=== PATIENT | male | born 1950 | race Caucasian/White ===

== ENCOUNTER 2018-01-13 14:45 | Inpatient (IN) ==
--- NOTE | 2018-01-13 15:25 | Emergency Department Note ---
Disposition Clinical Impression: Nausea vomiting and diarrhea, Acute hyponatremia Disposition: Admitted As Inpatient Condition: Good Referrals: Stiven Le DO [Primary Care Provider] - Forms: ED Satisfaction Letter Time of Disposition: 16:36 Nausea/Vomiting/Diarrhea HPI - General Chief complaint: ED Nausea/Vomiting/Diarrhea Stated complaint: vomiting diarrhea Time Seen by Provider: 01/13/18 14:50 Source: patient Mode of arrival: ambulatory Limitations: no limitations Nursing Notes Reviewed: Yes Vital Signs Reviewed: Yes - History of Present Illness Pt Subjective Complaint: nausea, vomiting, diarrhea Onset (ago): Just DATABASE SUPPORT Description of emesis: food contents Description of Diarrhea: water Associated Abdominal Pain: Yes - Related Data Home Medications Medication Instructions Recorded Confirmed Acetaminophen/Butalbital/Caffe 1 each PO Q6HR PRN 12/22/15 12/22/15 [Fioricet] Aspirin [Adult Low Dose Aspirin EC] 81 mg PO DAILY 12/22/15 12/22/15 Bupropion HCl [Wellbutrin Xl] 300 mg PO DAILY 12/22/15 12/22/15 Carvedilol [Coreg] 6.25 mg PO BIDWM 12/22/15 12/22/15 Clopidogrel [Plavix] 75 mg PO DAILY 12/22/15 12/22/15 Krill Oil 500 mg PO DAILY 12/22/15 12/22/15 Lisinopril [Zestril] 20 mg PO DAILY 12/22/15 12/22/15 Promethazine [Phenergan] 25 mg PO Q8HR PRN 12/22/15 12/22/15 Rosuvastatin [Crestor] 20 mg PO HS 12/22/15 12/22/15 Tramadol HCl/Acetaminophen 1 each PO DAILY 12/22/15 12/22/15 [Ultracet Tablet] amLODIPine [Norvasc] 5 mg PO DAILY 12/22/15 12/22/15 clonazePAM [Klonopin] 1 mg PO DAILY 12/22/15 12/22/15 Allergies Allergy/AdvReac Type Severity Reaction Status Date / Time clarithromycin [From Biaxin] Allergy Nausea Verified 01/13/18 14:49 Constitutional: Denies: fever, chills, weakness, weight change Eyes: Denies: eye pain, eye discharge, vision change ENT ED: Denies: ear pain, throat pain, dental pain, hearing loss, epistaxis, congestion, dysphagia Cardiovascular: Denies: chest pain, palpitations, dyspnea on exertion, edema, syncope Respiratory: Denies: cough, dyspnea, wheezes, hemoptysis, stridor Gastrointestinal: Reports: nausea, vomiting, diarrhea. Denies: abdominal pain, constipation, hematemesis, melena, hematochezia Genitourinary: Denies: urgency, dysuria, frequency, hematuria Musculoskeletal: Denies: back pain, neck pain, arthralgia, myalgia Integumentary: Denies: rash, abrasion, lesions Neurological: Denies: headache, weakness, numbness, paresthesias, confusion, abnormal gait, vertigo Psychiatric: Denies: anxiety, depression, suicidal thoughts, homicidal thoughts , auditory hallucinations, visual hallucinations Endocrine: Denies: fatigue Hematological/Lymphatic: Denies: easy bleeding, easy bruising Allergic/Immunologic: Denies: facial swelling, urticaria Past Medical History - Past Medical History Medical history: Reports: CHF, coronary artery disease, CVA, GERD, hyperlipidemia, hypertension, renal disease Surgical history: Reports: coronary bypass (CABG) Psychiatric history: Reports: no psych history - Social History Smoking Status: Never smoker Smokeless Tobacco Status: No Alcohol use: Reports: none Physical Exam - General Limitations: no limitations General appearance: alert, in no apparent distress - Head Head exam: atraumatic, normocephalic, normal inspection - Eye Eye exam: Present: normal appearance, PERRL, EOMI - ENT ENT exam: normal exam, normal oropharynx, mucous membranes moist - Neck Neck exam: Present: normal inspection, full ROM, trachea midline - Chest Chest inspection: Present: normal inspection, symmetric chest wall rise - Respiratory Respiratory exam: Present: normal lung sounds bilaterally - Cardiovascular Cardiovascular exam: Present: regular rate, normal rhythm, normal heart sounds - Abdominal Exam Abdominal exam: Present: soft, Non-Tender. Absent: tenderness, distention, guarding, rebound, rigidity - Extremities Exam Extremities exam: Present: normal inspection, full ROM. Absent: tenderness, pedal edema - Expanded Lower Extremity Exam Neurovascular/Tendon exam: Absent: motor deficit, sensory deficit, tendon deficit Gait: observed and normal - Back Exam Back exam: Present: normal inspection, full ROM. Absent: tenderness - Neurological Exam Neurological exam: Present: alert, oriented X3 - Psychiatric Psychiatric exam: Present: normal affect, normal mood - Skin Skin exam: Present: warm, dry, intact, normal color Course - Reevaluation(s) Reevaluation #1: 67-year-old with nausea vomiting diarrhea can keep anything down sodium is 127 liver functions are normal the patient CT is negative. Patient thinks he may have some food poisoning. We will admit for IV hydration. Time: 17:04 - Consultations Consultation #1: Discussed with Dr. Jackson, admit. Time: 17:03 Vital Signs Temperature 98.1 F 01/13/18 14:47 Pulse Rate 79 01/13/18 14:47 Respiratory Rate 16 01/13/18 14:47 Blood Pressure 128/82 01/13/18 14:47 O2 Sat by Pulse Oximetry 94 01/13/18 14:47 Temperature 98.1 F 01/13/18 15:39 Pulse Rate 79 01/13/18 15:39 Respiratory Rate 16 01/13/18 15:39 Blood Pressure 128/82 01/13/18 15:39 O2 Sat by Pulse Oximetry 94 01/13/18 15:39 Oxygen Delivery Oxygen Delivery Room Air Nausea/Vomiting/Diarrhea - Lab Data Lab results reviewed: Yes I reviewed the patient's lab results. Result diagrams: 01/13/18 15:15 01/13/18 15:15 Lab Results 01/13/18 01/13/18 01/13/18 Range/Units 15:04 15:15 15:15 WBC 9.1 (4.3-11.1) K/mcL RBC 6.24 H (4.19-5.50) M/mcL Hgb 18.5 H (12.9-16.9) g/dL Hct 51.0 H (37.5-50.1) % MCV 81.7 L (83.0-100.0) fL MCH 29.6 (28.0-33.3) pg MCHC 36.3 H (31.6-35.5) g/dL RDW 12.8 (11.5-14.5) % Plt Count 199 (140-400) K/mcL MPV 9.8 (9.4-12.4) fL Immature Gran % 0.4 (0-4) % Seg Neutrophils % 74.5 % Lymphocytes % 9.6 % Monocytes % 13.6 % Eosinophils % 1.5 % Basophils % 0.4 % Neutrophils # 6.7 (1.6-8.9) K/mcL Lymphocytes # 0.9 (0.6-4.6) K/mcL Monocytes # 1.2 (0.0-1.3) K/mcL Eosinophils # 0.1 (0.0-0.6) K/mcL Basophils # 0.0 (0.0-0.2) K/mcL Sodium 126 L (136-145) mEq/L Potassium 3.9 (3.5-5.1) mEq/L Chloride 96 L (98-107) mEq/L Carbon Dioxide 22 L (23-29) mEq/L BUN 15 (8-23) mg/dL Creatinine 1.15 (0.70-1.30) mg/dL Est GFR ( Amer) > 60 (> 60) Est GFR (Non-Af Amer) > 60 (> 60) BUN/Creatinine Ratio 13 (6-26) Glucose 143 H (70-105) mg/dL Calculated Osmolality 265 L (280-300) Calcium 9.1 (8.6-10.3) mg/dL Total Bilirubin 1.0 (0.3-1.0) mg/dL Direct Bilirubin 0.2 (0.0-0.2) mg/dL Indirect Bilirubin 0.8 (0.0-1.2) mg/dL AST 39 (13-39) Units/L ALT 29 (7-52) Units/L Alkaline Phosphatase 79 (34-104) Units/L Serum Total Protein 7.2 (6.4-8.9) g/dL Albumin 4.3 (3.5-5.7) g/dL Globulin 2.9 (2.4-3.5) g/dL Albumin/Globulin Ratio 1.5 (1.1-2.2) Lipase 9 L (11-82) Units/L Ur Specimen Adequacy See below A Urine Color Dark Yellow (Yellow) Urine Clarity Clear (Clear) Urine pH 6.0 (5.0-8.0) pH Units Ur Specific [place] 1.020 (1.010-1.025) Urine Protein Trace (Neg-Trace) mg/dL Urine Glucose (UA) Normal (Normal) mg/dL Urine Ketones Negative (Negative) mg/dL Urine Blood Negative (Negative) Urine Nitrite Negative (Negative) Urine Bilirubin Small H (Negative) Urine Urobilinogen Normal (Normal) mg/dL Ur Leukocyte Esterase Negative (Negative) Urine Microscopic RBC 5-15 H (0-3) per hpf Urine Microscopic WBC 0-3 (0-3) per hpf Ur Squamous Epith Cells Few (None-Few) per lpf Urine Bacteria None Seen (None-Few) per hpf Hyaline Casts None Seen (None-Few) per lpf Ur Culture Indicated? NO (NO) - Radiology Data Radiology results reviewed: Yes I reviewed the patient's radiology results. Abdomen/Pelvis CT 01/13/18 15:15 IMPRESSION: No acute inflammatory change identified in the abdomen or pelvis. Benign findings as above. Left nephrolithiasis. Sequela of old granulomatous disease with scarring the left lower lobe and small pleural effusion with pleural thickening. D/ / Dany Mccullough / Dany Mccullough Interpreting Provider: Dany Mccullough
[2018-01-13] MEDS ORDERED: 0.9 % Sodium Chloride 1,000 ML IVC SCH ×2 (15:30→20:45)
[2018-01-13 15:32] LABS: Bilirubin,Urine Small (Negative); Blood,Urine Negative (Negative); Clarity,Urine Clear (Clear); Color,Urine Dark Yellow (Yellow); Glucose,Urine (UA) Normal (Normal); Ketones,Urine Negative (Negative); Leukocyte Esterase,Urine Negative (Negative); Nitrite,Urine Negative (Negative); Protein,Urine Trace mg/dL (Neg-Trace); Urobilinogen,Urine Normal (Normal)
[2018-01-13 15:35] LABS: Bacteria,Urine None Seen per hpf (None-Few); Hyaline Casts,Urine None Seen per lpf (None-Few); Squamous Epithelial Cell,Urine Few per lpf (None-Few); WBC,Urine 0-3 per hpf (0-3)
[2018-01-13 15:45] LABS: Basophils % 0.4 %; Eosinophils # 0.1 K/mcL (0.0-0.6); Eosinophils % 1.5 %; Hemoglobin 18.5 g/dL (12.9-16.9); Immature Granulocytes % 0.4 % (0-4); Lymphocytes # 0.9 K/mcL (0.6-4.6); Lymphocytes % 9.6 %; Mean Corpuscular HGB Conc 36.3 g/dL (31.6-35.5); Mean Corpuscular Hemoglobin 29.6 pg (28.0-33.3); Mean Corpuscular Volume 81.7 fL (83.0-100.0); Mean Platelet Volume 9.8 fL (9.4-12.4); Monocytes # 1.2 K/mcL (0.0-1.3); Monocytes % 13.6 %; Neutrophils # 6.7 K/mcL (1.6-8.9); Platelet Count 199 K/mcL (140-400); Red Blood Count 6.24 M/mcL (4.19-5.50); Red Cell Distribution Width 12.8 % (11.5-14.5); Segmented Neutrophils % 74.5 %
[2018-01-13 16:07] LABS: Alanine Aminotransferase 29 Units/L (7-52); Albumin 4.3 g/dL (3.5-5.7); Albumin/Globulin Ratio 1.5 (1.1-2.2); Alkaline Phosphatase 79 Units/L (34-104); Aspartate Amino Transferase 39 Units/L (13-39); BUN/Creatinine Ratio 13 (6-26); Bilirubin,Direct 0.2 mg/dL (0.0-0.2); Bilirubin,Indirect 0.8 mg/dL (0.0-1.2); Blood Urea Nitrogen 15 mg/dL (8-23); Calcium 9.1 mg/dL (8.6-10.3); Carbon Dioxide 22 mEq/L (23-29); Chloride 96 mEq/L (98-107); Globulin 2.9 g/dL (2.4-3.5); Glucose 143 mg/dL (70-105); Lipase 9 Units/L (11-82); Osmolality,Calculated 265 (280-300); Potassium 3.9 mEq/L (3.5-5.1); Sodium 126 mEq/L (136-145); Total Protein 7.2 g/dL (6.4-8.9); eGFR For African Americans > 60 (> 60); eGFR For Non-African Americans > 60 (> 60)
--- NOTE | 2018-01-13 17:39 | Internal Med History&Physical ---
Date of Encounter: 01/13/18 Time of Encounter: 08:00 Internal Medicine - H&P: HPI Chief complaint: Vomiting, Diarrhea History of present illness: 67-year-old male with PMH of HTN, hyperlipidemia who presented with with nausea ,vomiting and diarrhea and cant keep anything down, He was evaluated by the ER staff and his sodium was reported to be 126. CT o the abdomen and the pelvis was performed and revealed no significant abnormalities. The patient was admitted for further evaluation and management. Past Med Surg Social Fam HX - Past Medical History Medical history: CHF, coronary artery disease, CVA, GERD, hyperlipidemia, hypertension, renal disease Psychiatric history: no psych history - Past Surgical History Surgical History: coronary bypass (CABG) - Social History Smoking Status: Never smoker Smokeless Tobacco Status: No Alcohol use: none Drug use: none - Family History Father Living Status: Cause of : [place] Hx Family Cardiac Disorders: Yes Internal Medicine - H&P: Meds Acetaminophen/Butalbital/Caffe [Fioricet] 1 each PO Q6HR PRN 12/22/15 [History] Aspirin [Adult Low Dose Aspirin EC] 81 mg PO DAILY 12/22/15 [History] Bupropion HCl [Wellbutrin Xl] mg PO DAILY 12/22/15 [History] Carvedilol [Coreg] 5 mg PO BIDWM 12/22/15 [History] Clopidogrel [Plavix] 75 mg PO DAILY 12/22/15 [History] Krill Oil 500 mg PO DAILY 12/22/15 [History] Lisinopril [Zestril] 20 mg PO DAILY 12/22/15 [History] Promethazine [Phenergan] 25 mg PO Q8HR PRN 12/22/15 [History] Rosuvastatin [Crestor] 20 mg PO HS 12/22/15 [History] Tramadol HCl/Acetaminophen [Ultracet Tablet] 1 each PO DAILY 12/22/15 [History] amLODIPine [Norvasc] 10 mg PO HS 12/22/15 [History] clonazePAM [Klonopin] 0.5 mg PO HS 12/22/15 [History] 3 Allergy/AdvReac Type Severity Reaction Status Date / Time clarithromycin [From Biaxin] Allergy Nausea Verified 01/13/18 14:49 All Systems PM: A 10-system review of systems was performed and is negative for pertinent findings except as documented above in the HPI. - Constitutional Constitutional: no chills, no fever(s), no night sweats - Cardiovascular Cardiovascular ROS IM: no chest pain, no diaphoresis, no dyspnea, no lightheadedness, no palpitations, no syncope - Respiratory Respiratory: no cough, no dyspnea, no wheezing, no excessive phlegm production - Gastrointestinal Gastrointestinal: diarrhea, nausea, vomiting - Neurological Neurological ROS: no confusion, no convulsions, no focal weakness, no numbness, no tingling, no tremor(s) - Constitutional Vitals: Temp Pulse Resp BP Pulse Ox 98.1 F 81 18 125/92 96 01/13/18 15:39 01/13/18 17:26 01/13/18 17:26 01/13/18 17:26 01/13/18 17:26 General appearance: Present: A&O X 3 - Head Head exam: Present: atraumatic, normocephalic - Neck Neck exam general surgery: Present: supple, trachea midline. Absent: lymphadenopathy - Respiratory Respiratory exam: Present: CTAB. Absent: accessory muscle use, rales, rhonchi, wheezes - Cardiovascular Cardiovascular exam: Present: RRR, +S1, +S2. Absent: diastolic murmur, gallop, rubs, systolic murmur - GI/Abdominal GI/Abdominal exam: Present: normal bowel sounds, soft, no peritoneal signs. Absent: distended, tenderness - Extremities Exam Extremities exam: Present: warm, radial pulses palpable and symmetrical. Absent : calf tenderness, cyanotic, pedal edema Internal Med - H&P Results - Labs CBC & Chem 7: 01/14/18 03:24 01/14/18 03:24 - Assessment and plan (1) Nausea vomiting and diarrhea Status: Resolved Assessment and plan: ASSESSMENT: - N/V DD *Gastroenteritis *Gastritis *PUD *Pancreatitis *Cholecystitis *Diverticulitis *UTI PLAN: - NPO apart from meds - IVF - Stool WBC, O/P, C/S, Stool C.diff - Urine analysis - CBCD, BMP in AM - Zofran (ondansetron) PRN - DVT prophylaxis (2) Acute hyponatremia Status: Acute Assessment and plan: Hypovolumic hyponatermia , obtain urine and serum osm , urine lyts , IV hydration with isotonic fluid. (3) Hypertension Status: Chronic Assessment and plan: We will cont home meds including ACEIs given normal kidney function. Qualifiers: Hypertension type: essential hypertension Qualified Code(s): I10 - Essential (primary) hypertension (4) Hyperlipidemia Status: Acute Assessment and plan: We will cont home statin, FLP in am Qualifiers: Hyperlipidemia type: mixed hyperlipidemia Qualified Code(s): E78.2 - Mixed hyperlipidemia (5) Microscopic hematuria Status: Acute Assessment and plan: We will repeat UA, consult nephrology if persist. (6) Metabolic acidosis Status: Acute Assessment and plan: Most likely 2/2 volume depletion.Cont IV hydration with isotonic saline. (7) DVT prophylaxis Status: Acute - Time Spent With Patient Total time spent is greater than 50% in coordination of care (as documented) at patient's floor/unit and/or counseling patient:
[2018-01-13] MEDS ORDERED: Naloxone 0.4 MG/ML INJ IVP PRN (20:43)
[2018-01-13] MEDS: 0.9 % Sodium Chloride 1,000 ML IVC SCH (21:03)
[2018-01-14] MEDS: 0.9 % Sodium Chloride 1,000 ML IVC SCH (03:01)
[2018-01-14 04:34] LABS: Basophils # 0.1 K/mcL (0.0-0.2); Basophils % 0.7 %; Eosinophils # 0.2 K/mcL (0.0-0.6); Eosinophils % 2.2 %; Hematocrit 48.2 % (37.5-50.1); Hemoglobin 17.2 g/dL (12.9-16.9); Immature Granulocytes % 0.4 % (0-4); Lymphocytes # 1.1 K/mcL (0.6-4.6); Lymphocytes % 14.4 %; Mean Corpuscular HGB Conc 35.7 g/dL (31.6-35.5); Mean Corpuscular Hemoglobin 29.5 pg (28.0-33.3); Mean Corpuscular Volume 82.5 fL (83.0-100.0); Mean Platelet Volume 10.2 fL (9.4-12.4); Monocytes # 1.3 K/mcL (0.0-1.3); Monocytes % 16.4 %; Platelet Count 175 K/mcL (140-400); Red Blood Count 5.84 M/mcL (4.19-5.50); Red Cell Distribution Width 13.1 % (11.5-14.5); Segmented Neutrophils % 65.9 %
[2018-01-14 04:38] LABS: INR 1.1; Prothrombin Time 12.2 Seconds (9.4-12.1)
[2018-01-14 04:53] LABS: Alanine Aminotransferase 33 Units/L (7-52); Albumin 3.9 g/dL (3.5-5.7); Albumin/Globulin Ratio 1.6 (1.1-2.2); Alkaline Phosphatase 69 Units/L (34-104); Aspartate Amino Transferase 39 Units/L (13-39); BUN/Creatinine Ratio 14 (6-26); Blood Urea Nitrogen 14 mg/dL (8-23); Calcium 8.7 mg/dL (8.6-10.3); Carbon Dioxide 23 mEq/L (23-29); Chloride 98 mEq/L (98-107); Chol/HDL Ratio 5.8 (0-4.9); Cholesterol 116 mg/dL (< 200); Globulin 2.5 g/dL (2.4-3.5); Glucose 102 mg/dL (70-105); HDL Cholesterol 20 mg/dL (40-59); LDL Cholesterol,Calculated 72 mg/dL (0-99); Magnesium 1.9 mg/dL (1.6-2.6); Osmolality,Calculated 269 (280-300); Phosphorous 3.1 mg/dL (2.7-4.5); Potassium 3.6 mEq/L (3.5-5.1); Sodium 129 mEq/L (136-145); Total Protein 6.4 g/dL (6.4-8.9); Triglycerides 122 mg/dL (< 150); eGFR For African Americans > 60 (> 60); eGFR For Non-African Americans > 60 (> 60)
[2018-01-14 05:25] LABS: Bilirubin,Urine Negative (Negative); Blood,Urine Negative (Negative); Clarity,Urine Clear (Clear); Color,Urine Yellow (Yellow); Glucose,Urine (UA) Normal (Normal); Ketones,Urine 15 mg/dL (Negative); Leukocyte Esterase,Urine Negative (Negative); Nitrite,Urine Negative (Negative); PH,Urine 5.5 pH Units (5.0-8.0); Protein,Urine Negative (Neg-Trace); Specific Gravity,Urine 1.017 (1.010-1.025); Urobilinogen,Urine Normal (Normal)
[2018-01-14 05:46] LABS: Potassium,Urine 20.1 mEq/L
[2018-01-14] MEDS ORDERED: *HR* Heparin 5,000 UNIT/ML VIAL SQ SCH (06:00)
[2018-01-14 07:51] VITALS: BP 164/82
[2018-01-14] MEDS ORDERED: Aspirin Enteric Coated 81 MG Tablet PO SCH (09:00)
[2018-01-14] MEDS ORDERED: Lisinopril 20 MG TABLET PO SCH (09:00)
--- NOTE | 2018-01-14 10:32 | Discharge Summary ---
- NOTES TO OUTPATIENT PROVIDER Notes to Outpatient Provider: Patient hospitalized with hyponatremia and intractable nausea vomiting and diarrhea. Suspected to have gastroenteritis or food poisoning. His symptoms improved with bowel rest. His hyponatremia has also improved. Could be related to dehydration. And also hydrochlorothiazide use which the patient reports taking. Would recommend holding this medication and following with PCP for further management. He will be discharged today if he tolerates diet. Date of Encounter: 01/14/18 Time of Encounter: 10:32 - Discharge Diagnosis (1) Nausea vomiting and diarrhea Priority: Primary Status: Resolved (2) Acute hyponatremia Priority: Secondary Status: Acute (3) DVT prophylaxis Priority: Secondary Status: Acute (4) Hypertension Priority: Secondary Status: Chronic Qualifiers: Hypertension type: essential hypertension Qualified Code(s): I10 - Essential (primary) hypertension (5) Hyperlipidemia Priority: Secondary Status: Acute Qualifiers: Hyperlipidemia type: mixed hyperlipidemia Qualified Code(s): E78.2 - Mixed hyperlipidemia (6) Microscopic hematuria Priority: Secondary Status: Acute (7) Metabolic acidosis Priority: Secondary Status: Acute Hospital course: Mr. Magallon is a 68 year old male with a history of hypertension, hyperlipidemia was hospitalized with hyponatremia and intractable nausea vomiting and diarrhea. Suspected to have gastroenteritis or food poisoning. His symptoms improved with bowel rest and IV hydration. His hyponatremia has also improved. Could be related to dehydration. Patient also reports taking hydrochlorothiazide. Would recommend holding this medication and following with PCP for further management. He will be discharged today if he tolerates diet. Discharge discussed with: patient, family, nurse - Time Spent with Patient Total time spent providing and/or coordinating discharge services: Less than 30 minutes (25 min) - Discharge Medications Home Medications: Acetaminophen/Butalbital/Caffe [Fioricet] 1 each PO Q6HR PRN 12/22/15 [History] Aspirin [Adult Low Dose Aspirin EC] 81 mg PO DAILY 12/22/15 [History] Bupropion HCl [Wellbutrin Xl] mg PO DAILY 12/22/15 [History] Carvedilol [Coreg] 5 mg PO BIDWM 12/22/15 [History] Clopidogrel [Plavix] 75 mg PO DAILY 12/22/15 [History] Krill Oil 500 mg PO DAILY 12/22/15 [History] Lisinopril [Zestril] 20 mg PO DAILY 12/22/15 [History] Promethazine [Phenergan] 25 mg PO Q8HR PRN 12/22/15 [History] Rosuvastatin [Crestor] 20 mg PO HS 12/22/15 [History] Tramadol HCl/Acetaminophen [Ultracet Tablet] 1 each PO DAILY 12/22/15 [History] amLODIPine [Norvasc] 10 mg PO HS 12/22/15 [History] clonazePAM [Klonopin] 0.5 mg PO HS 12/22/15 [History] Allergies/Adverse Reactions: 3 Allergy/AdvReac Type Severity Reaction Status Date / Time clarithromycin [From Biaxin] Allergy Nausea Verified 01/13/18 14:49 Date of admission: 01/13/18 20:43 Primary care physician: Stiven Le Discharging clinician: Shirley Odonnell Anticipated date of discharge: 01/14/18 - Constitutional Vitals: Temp Pulse Resp BP Pulse Ox 98.2 F 66 14 164/82 95 01/14/18 07:49 01/14/18 07:49 01/14/18 07:49 01/14/18 07:49 01/14/18 07:49 General appearance: Present: A&O X 3 - Neck Neck exam general surgery: Present: supple, trachea midline. Absent: lymphadenopathy - Respiratory Respiratory exam: Present: CTAB. Absent: accessory muscle use, rales, rhonchi, wheezes - Cardiovascular Cardiovascular exam: Present: RRR, +S1, +S2. Absent: diastolic murmur, gallop, rubs, systolic murmur - GI/Abdominal GI/Abdominal exam: Present: normal bowel sounds, soft, no peritoneal signs. Absent: distended, tenderness - Extremities Exam Extremities exam: Present: warm, radial pulses palpable and symmetrical. Absent : calf tenderness, cyanotic, pedal edema - Patient Status Disposition: Home, Self-Care Condition: Good Functional capacity at discharge: independent ambulation Overall status at discharge: patient is progressing back to baseline - Discharge Instructions Instructions: Chronic Hypertension (DC) Follow Up With: Stiven Le DO [Primary Care Provider] - (in 1-2 weeks) - Diet and Activity Activity: increase activity as tolerated Diet: advance to your usual diet
[2018-01-14] MEDS ORDERED: clonazePAM 1 MG TABLET PO SCH (21:00)
[2018-01-14] MEDS ORDERED: amLODIPine 5 MG TABLET PO SCH (21:00)
== END 2018-01-14 11:05 | disposition home or self-care (01) | DRG 641 ==
LOC: EMEROO 14:45 → 3ANU 14:45
PROVIDERS: ADMIT Internal Medicine Nephrology; ATTEND Internal Medicine Nephrology